=== PATIENT | male | born 1940 | race African-American/Black ===

== ENCOUNTER 2017-02-24 11:04 | Emergency (ER) | payer MEDICARE ==
[~2017-02-24] VITALS: Ht 195.6 cm; Wt 113.0 kg
[2017-02-24 11:05] VITALS: BP 164/70
[2017-02-24] MEDS ORDERED: GLIM4TAB2 PO (11:15)
[2017-02-24] MEDS ORDERED: RIVA20TA PO (11:15)
[2017-02-24] MEDS ORDERED: BENA40TA3 PO (11:15)
== END 2017-02-24 12:40 | disposition home or self-care (01) ==
LOC: ER 11:47
DX: M25.551 Pain in right hip (principal); M19.90 Unspecified osteoarthritis, unspecified site; E11.9 Type 2 diabetes mellitus without complications; I10 Essential (primary) hypertension; Z95.1 Presence of aortocoronary bypass graft
CPT/HCPCS: 73502; 99284

== ENCOUNTER → 2017-03-03 | Outpatient (CLI) | payer MEDICARE ==
[~2017-03-03] MED LIST: BENA40TA3 PO; GLIM4TAB2 PO; RIVA20TA PO
== END | disposition home or self-care (01) ==
LOC: MRI 08:25 → SUPCPDRO 03-06 16:25
PROVIDERS: ATTEND Internal Medicine
DX: M48.06 Spinal stenosis, lumbar region (principal); M47.26 Other spondylosis with radiculopathy, lumbar region; M51.06 Intervertebral disc disorders with myelopathy, lumbar region; M41.86 Other forms of scoliosis, lumbar region; F40.240 Claustrophobia
CPT/HCPCS: 72148

== ENCOUNTER 2017-09-29 05:31 | Day surgery (SDC) | payer MEDICARE ==
[~2017-09-29] VITALS: Ht 195.6 cm; Wt 109.3 kg
[2017-09-29] MEDS ORDERED: PHENYLEPHRINE HCL 10% OPHTH DROPS 5ML LEFTEYE ONE (06:20)
[2017-09-29] MEDS ORDERED: CYCLOPENTOLATE HCL 1% OPHTH DROPS 2ML LEFTEYE ONE (06:20)
[2017-09-29] MEDS ORDERED: TROPICAMIDE 1% OPHTH DROPS 15ML LEFTEYE ONE (06:20)
[2017-09-29] MEDS ORDERED: DEXT 5%/0.9% NACL 1,000 ML IV SCH (06:50)
[2017-09-29] MEDS ORDERED: BALANCED SALT IRRIG SOLN COMB1 500ML OP ONE (07:30)
[2017-09-29] MEDS ORDERED: SODIUM CHLORIDE 0.9% 500 ML IV NR (07:30)
[2017-09-29] MEDS ORDERED: HYALURONATE SODIUM 14 MG/ML 0.85ML SYRINGE IO ONE (07:35)
[2017-09-29] MEDS ORDERED: MEPERIDINE HCL/PF 25MG/ML CPJ IV PRN (08:30)
[2017-09-29] MEDS ORDERED: ONDANSETRON HCL 4MG/2ML VIAL IV PRN (08:30)
[2017-09-29] MEDS ORDERED: LABETALOL 5MG/ML SYR 20 MG/4 ML SYRINGE IV PRN (08:30)
[2017-09-29] MEDS ORDERED: GLUC-96 PO (09:35)
[2017-09-29] MEDS ORDERED: GLIM2TAB2 PO (09:35)
[2017-09-29] MEDS ORDERED: LOSA100T14 PO (09:35)
[2017-09-29] MEDS ORDERED: TRAM50TA3 PO (09:35)
[2017-09-29] MEDS ORDERED: UBID100C12 PO (09:35)
[2017-09-29] MEDS ORDERED: CA C1TAB87 PO (09:35)
[2017-09-29] MEDS ORDERED: COD1CAPS7 PO (09:35)
[2017-09-29] MEDS ORDERED: PREG75CA PO (09:35)
[2017-09-29] MEDS ORDERED: ASPI-1159 PO (09:35)
[2017-09-29] MEDS ORDERED: [UNRECOGNIZED DRUG - CODE] PO (09:35)
[2017-09-29] MEDS ORDERED: FISH1CAP34 PO (09:35)
[2017-09-29] MEDS ORDERED: MULT-1146 PO (09:35)
[2017-09-29] MEDS ORDERED: SITA1TAB6 PO (09:35)
[2017-09-29] MEDS ORDERED: NEO/POLYMYX B SULF/DEXAMETH OPHTH OINT 3.5GM ONE (14:54)
[2017-09-29] MEDS ORDERED: BALANCED SALT IRRIG SOLN 15ML ONE (14:54)
[2017-09-29] MEDS ORDERED: CIPROFLOXACIN 0.3% OPHTH SOLN 2.5ML ONE (14:54)
[2017-09-29] MEDS ORDERED: LIDOCAINE HCL 2%/EPINEPHRINE 1:100,000 20 ML VIAL INFIL ONE (14:54)
[2017-09-29] MEDS ORDERED: PREDNISOLONE ACETATE 1% OPHTH DROPS 1ML ONE (14:54)
[2017-09-29] MEDS ORDERED: TETRACAINE 0.5% OPHTH DROPS 4ML ONE (14:54)
[2017-09-29] MEDS ORDERED: ACETYLCHOLINE CHLORIDE INTRAOCULAR SOLUTION 1:100 ELECTROLYTE DILUENT IO ONE (14:54)
[2017-09-29] MEDS ORDERED: LIDOCAINE HCL/PF 2% 20 MG/ML 10ML VIAL ONE (14:54)
[2017-09-29] MEDS ORDERED: BUPIVACAINE HCL/PF 0.75% (7.5MG/ML) 10ML ONE (14:54)
== END 2017-09-29 10:32 | disposition home or self-care (01) ==
LOC: OR 05:31
PROVIDERS: ATTEND Ophthalmology
DX: H25.89 Other age-related cataract (principal); I25.10 Atherosclerotic heart disease of native coronary artery without angina pectoris; I10 Essential (primary) hypertension; M19.90 Unspecified osteoarthritis, unspecified site; I73.89 Other specified peripheral vascular diseases; E11.40 Type 2 diabetes mellitus with diabetic neuropathy, unspecified; Z79.84 Long term (current) use of oral hypoglycemic drugs; Z79.899 Other long term (current) drug therapy; Z95.1 Presence of aortocoronary bypass graft; Z98.890 Other specified postprocedural states; Z88.8 Allergy status to other drugs, medicaments and biological substances
CPT/HCPCS: 66984; 82962; J2250; J3490; J7040; V2632; J2704

== ENCOUNTER 2017-11-24 05:37 | Day surgery (SDC) | payer MEDICARE ==
[~2017-11-24] VITALS: Ht 195.6 cm; Wt 109.3 kg
[~2017-11-24 05:37] MED LIST changes: +ASPI-1159 PO; +CA C1TAB87 PO; +COD1CAPS7 PO; +FISH1CAP34 PO; +GLIM2TAB2 PO; -GLIM4TAB2 PO; +GLUC-96 PO; +LOSA100T14 PO; +MULT-1146 PO; +PREG75CA PO; +SITA1TAB6 PO; +TRAM50TA3 PO; +UBID100C12 PO; +[UNRECOGNIZED DRUG - CODE] PO
[2017-11-24] MEDS ORDERED: PHENYLEPHRINE HCL 10% OPHTH DROPS 5ML RIGHTEYE NR (06:10)
[2017-11-24] MEDS ORDERED: CYCLOPENTOLATE HCL 1% OPHTH DROPS 2ML RIGHTEYE NR (06:10)
[2017-11-24] MEDS ORDERED: TROPICAMIDE 1% OPHTH DROPS 15ML RIGHTEYE NR (06:10)
[2017-11-24] MEDS ORDERED: SODIUM CHLORIDE 0.9% 500 ML IV ONE (06:30)
[2017-11-24 06:50] LABS: BASOPHILS % 0.5 % (0.0-2.0); EOSINOPHILS % 0.7 % (0.0-5.0); HEMATOCRIT. 39.5 % (42.0-52.0); HEMOGLOBIN. 12.9 g/dL (14.0-18.0); LYMPHOCYTES % 20.3 % (20.0-50.0); MEAN CORPUSCULAR HEMOGLOBIN 30.9 pg (28.0-32.0); MEAN CORPUSCULAR VOLUME 94.4 fL (80.0-94.0); MEAN PLATELET VOLUME 9.4 fl (7.4-10.4); NEUTROPHILS % 70.5 % (40.0-76.0); PLATELET 145 x1000/uL (130-400); RED BLOOD CELL COUNT 4.18 mill/uL (4.7-6.1); RED CELL DISTRIBUTION WIDTH 16.2 % (11.6-14.6)
[2017-11-24] MEDS ORDERED: HYALURONATE SODIUM 14 MG/ML 0.85ML SYRINGE IO ONE (07:08)
[2017-11-24] MEDS ORDERED: BALANCED SALT IRRIG SOLN COMB1 500ML OP SCH (07:30)
[2017-11-24] MEDS ORDERED: ACETAMINOPHEN 500MG TABLET PO SCH (10:00)
[2017-11-24] MEDS ORDERED: ONDANSETRON HCL 4MG/2ML VIAL IV PRN (10:00)
[2017-11-24] MEDS ORDERED: LABETALOL HCL 5MG/ML VIAL 20ML IV PRN (10:00)
[2017-11-24] MEDS ORDERED: TETRACAINE 0.5% OPHTH DROPS 4ML ONE (15:49)
[2017-11-24] MEDS ORDERED: CYCLOPENTOLATE HCL 1% OPHTH DROPS 2ML ONE (15:49)
[2017-11-24] MEDS ORDERED: PREDNISOLONE ACETATE 1% OPHTH DROPS 1ML ONE (15:49)
[2017-11-24] MEDS ORDERED: LIDOCAINE HCL/PF 2% 20 MG/ML 10ML VIAL ONE (15:49)
[2017-11-24] MEDS ORDERED: ACETYLCHOLINE CHLORIDE INTRAOCULAR SOLUTION 1:100 ELECTROLYTE DILUENT IO ONE (15:49)
[2017-11-24] MEDS ORDERED: PHENYLEPHRINE HCL 10% OPHTH DROPS 5ML ONE (15:49)
[2017-11-24] MEDS ORDERED: LIDOCAINE HCL 2%/EPINEPHRINE 1:100,000 20 ML VIAL INFIL ONE (15:49)
[2017-11-24] MEDS ORDERED: BALANCED SALT IRRIG SOLN 15ML ONE (15:49)
[2017-11-24] MEDS ORDERED: CIPROFLOXACIN 0.3% OPHTH SOLN 2.5ML ONE (15:49)
[2017-11-24] MEDS ORDERED: BUPIVACAINE HCL/PF 0.75% (7.5MG/ML) 10ML ONE (15:49)
[2017-11-24] MEDS ORDERED: TROPICAMIDE 1% OPHTH DROPS 15ML ONE (15:49)
[2017-11-24] MEDS ORDERED: NEO/POLYMYX B SULF/DEXAMETH OPHTH OINT 3.5GM ONE (15:49)
== END 2017-11-24 11:20 | disposition home or self-care (01) ==
LOC: OR 05:37
PROVIDERS: ATTEND Ophthalmology
DX: H25.89 Other age-related cataract (principal); I25.10 Atherosclerotic heart disease of native coronary artery without angina pectoris; I10 Essential (primary) hypertension; E11.9 Type 2 diabetes mellitus without complications; Z95.1 Presence of aortocoronary bypass graft
CPT/HCPCS: 36415; 66984; 80048; 82962; 85025; 93005; J3490; J7040; V2632

== ENCOUNTER 2018-11-25 06:24 | Day surgery (SDC) | payer MEDICARE, BC ==
[~2018-11-25] VITALS: Ht 195.6 cm; Wt 103.4 kg
[~2018-11-25 06:24] MED LIST changes: -BENA40TA3 PO; +BENA40TA9 PO
[2018-11-25] MEDS ORDERED: LIDOCAINE HCL 2% JELLY 5ML ONE (08:33)
[2018-11-25] MEDS ORDERED: TETRACAINE/BENZOCAINE/BUTAMBEN 20 GM SPRAY MM ONE (08:34)
[2018-11-25] MEDS ORDERED: FENTANYL CITRATE/PF 50MCG/ML 2ML VIAL ONE (08:34)
[2018-11-25] MEDS ORDERED: MIDAZOLAM HCL 2 MG/2 ML VIAL ONE ×2 (08:34→09:46)
[2018-11-25] MEDS ORDERED: DULO60CA44 PO (08:44)
[2018-11-25] MEDS ORDERED: TRAM50TA PO (08:44)
[2018-11-25] MEDS ORDERED: CLINORIL PO (08:44)
[2018-11-25] MEDS ORDERED: BICA50TA48 PO (08:44)
[2018-11-25] MEDS ORDERED: ATOR10TA PO (08:44)
[2018-11-25] MEDS ORDERED: FURO40TA5 PO (08:44)
[2018-11-25] MEDS ORDERED: LIDO700A15 TP (08:44)
[2018-11-25] MEDS ORDERED: THIA100T72 PO (08:44)
== END 2018-11-25 14:45 | disposition home or self-care (01) ==
LOC: CARD 06:24
PROVIDERS: ATTEND Specialist
DX: I48.1 Persistent atrial fibrillation (principal); E78.5 Hyperlipidemia, unspecified; I25.10 Atherosclerotic heart disease of native coronary artery without angina pectoris; I25.2 Old myocardial infarction; Z95.1 Presence of aortocoronary bypass graft; I12.9 Hypertensive chronic kidney disease with stage 1 through stage 4 chronic kidney disease, or unspecified chronic kidney disease; E11.22 Type 2 diabetes mellitus with diabetic chronic kidney disease; N18.9 Chronic kidney disease, unspecified; I34.0 Nonrheumatic mitral (valve) insufficiency
CPT/HCPCS: 82962; 92960; 93005; 93312; 99152; J2250; J3010; G0500